=== PATIENT | male | born 1980 | race African-American/Black ===

== ENCOUNTER 2020-07-21 13:42 | Emergency (ER) | payer OTHER ==
[~2020-07-21] VITALS: Ht 180.3 cm; Wt 112.0 kg
--- NOTE | 2020-07-21 13:50 | NUR ---
Pt BIB [facility], reports pt has SOB and body aches. Pt c/o light headedness, SOB w/cough (produces yellow phlem), and body aches. Pt denies CP, n/v, no distress noted but pt appears lethargic.
[2020-07-21] MEDS ORDERED: KETOROLAC TROMETHAMINE 15 MG INJ IVP ONE (14:00)
[2020-07-21] MEDS ORDERED: IPRATROPIUM BROMIDE 0.5 MG/2.5 ML NEBU NEB ONE (14:00)
[2020-07-21] MEDS ORDERED: DEXAMETHASONE SOD PHOSPHATE 4 MG INJ IV ONE (14:00)
[2020-07-21] MEDS ORDERED: ALBUTEROL SULFATE 2.5 MG/3 ML NEBU NEB ONE (14:00)
[2020-07-21] MEDS ORDERED: ALBUTEROL SULFATE 2.5 MG/3 ML NEBU ONE (14:15)
[2020-07-21] MEDS ORDERED: IPRATROPIUM BROMIDE 0.5 MG/2.5 ML NEBU ONE (14:16)
[2020-07-21] MEDS ORDERED: FURO-151 PO (14:28)
[2020-07-21] MEDS ORDERED: QUET200T PO (14:28)
[2020-07-21] MEDS ORDERED: ZINC SULFATE PO (14:28)
[2020-07-21] MEDS ORDERED: DOXY100C2 PO (14:28)
[2020-07-21] MEDS ORDERED: POTA10CA43 PO (14:28)
[2020-07-21] MEDS ORDERED: ASCO500P18 PO (14:28)
[2020-07-21] MEDS ORDERED: VITAMIN D PO (14:28)
[2020-07-21] MEDS ORDERED: AZIT250T13 PO (14:28)
[2020-07-21] MEDS ORDERED: ACET-2154 PO (14:28)
[2020-07-21 14:47] LABS: BASOPHILS # (AUTO) 0.2 K/uL (0.0-8.0); EOSINOPHILS # (AUTO) 0.1 K/uL (0.0-0.7); HEMATOCRIT 34.5 % (36.7-47.1); HEMOGLOBIN 10.4 g/dL (12.5-16.3); LYMPHOCYTES # (AUTO) 2.7 K/uL (20.0-40.0); LYMPHOCYTES % (AUTO) 24.5 % (20.5-51.5); MEAN CORPUSCULAR HEMOGLOBIN 25.2 uug (23.8-33.4); MEAN CORPUSCULAR HGB CONC 30 g/dL (32.5-36.3); MEAN CORPUSCULAR VOLUME 83.8 fL (73.0-96.2); MONOCYTES # (AUTO) 0.7 K/uL (2.0-10.0); MONOCYTES % (AUTO) 6.3 % (0.0-11.0); NEUTROPHILS # (AUTO) 7.4 K/uL (1.8-8.9); NEUTROPHILS % (AUTO) 66.2 % (38.5-71.5); PLATELET COUNT (AUTO) 284 K/uL (152-348); RED BLOOD CELL COUNT(AUTO) 4.11 MIL/uL (4.06-5.63); WHITE BLOOD COUNT (AUTO) 11.2 K/uL (3.6-10.2)
[2020-07-21] MEDS ORDERED: DEXAMETHASONE SOD PHOSPHATE 4 MG INJ ONE (14:49)
[2020-07-21] MEDS ORDERED: KETOROLAC TROMETHAMINE 15 MG INJ ONE (14:49)
[2020-07-21 14:55] LABS: CREATININE 0.9 mg/dL (0.6-1.3); POTASSIUM 3.8 mmol/L (3.5-5.1)
--- NOTE | 2020-07-21 15:00 | NUR ---
gave pt lunch tray, pt's mood improved. Pt now agrees to have chest X-ray, just finished.
[2020-07-21 15:12] LABS: BILIRUBIN,TOTAL 0.2 mg/dL (0.2-1.0); TOTAL PROTEIN, SERUM 5.7 g/dL (6.4-8.2)
[2020-07-21] MEDS ORDERED: ALBU18HF2 INH (15:50)
[2020-07-21] MEDS ORDERED: PRED20TA PO (15:50)
[2020-07-21] MEDS ORDERED: ASPIRIN 81 MG TAB.CHEW ONE (15:54)
--- NOTE | 2020-07-21 15:59 | NUR ---
Removed IV intact, site okay, bandaged. Pt signed out AMA. Gave pt RX and d/c instructions, pt verbalized understanding.
[2020-07-21] MEDS ORDERED: ASPIRIN 81 MG TAB.CHEW PO ONE (16:00)
== END 2020-07-21 16:08 | disposition left against medical advice (07) ==
LOC: ER 13:42
DX: U07.1 COVID-19 (principal); J96.21 Acute and chronic respiratory failure with hypoxia; J44.1 Chronic obstructive pulmonary disease with (acute) exacerbation; R00.0 Tachycardia, unspecified; I21.4 Non-ST elevation (NSTEMI) myocardial infarction; E87.4 Mixed disorder of acid-base balance; R79.1 Abnormal coagulation profile; E78.5 Hyperlipidemia, unspecified; F43.10 Post-traumatic stress disorder, unspecified; F32.9 Major depressive disorder, single episode, unspecified; Z86.16 Personal history of COVID-19; Z87.01 Personal history of pneumonia (recurrent); I11.0 Hypertensive heart disease with heart failure; I50.9 Heart failure, unspecified; Z79.899 Other long term (current) drug therapy
CPT/HCPCS: 36415; 70030-TC; 71045; 83605; 83615; 85025; 85730; 86140; 87040; 93005; A4663; J1100; J1885; J3590